=== PATIENT | male | born 1990 | race Two or more races ===

== ENCOUNTER 2021-11-13 21:08 | Emergency (ER) | payer SELFPAY ==
[~2021-11-13] VITALS: Ht 175.3 cm; Wt 85.7 kg
[2021-11-13 21:14] VITALS: BP 128/70
[2021-11-13] MEDS ORDERED: ACETAMINOPHEN 325 MG TAB PO ONE (21:20)
[2021-11-14] MEDS ORDERED: NIRM1TAB PO (00:56)
== END 2021-11-14 01:00 | disposition home or self-care (01) ==
LOC: MED 21:08
DX: U07.1 COVID-19 (principal); Z79.899 Other long term (current) drug therapy
CPT/HCPCS: 71045; 99284